=== PATIENT | female | born 1990 | race Caucasian/White ===

== ENCOUNTER 2024-07-14 15:37 | Outpatient (REF) | payer OTHER, SELFPAY ==
--- NOTE | ~2024-07-14 | XR_ITS ---
EXAMINATION: XR HAND, LEFT CLINICAL INFORMATION: M79.642 - Pain in left hand COMPARISON: None available. TECHNIQUE: PA, lateral, and oblique views of the left hand. FINDINGS: There is a comminuted fracture proximal phalanx mid segment fifth digit without displacement. No additional fractures seen. There is mild soft tissue swelling fifth digit. XR/XR hand LT min 3V IMPRESSION: Comminuted fracture proximal phalanx with segment fifth digit. Mild soft tissue swelling. Electronically signed by: Randal Samayoa MD 07/16/2024 07:45 AM MICHELLE
== END 2024-07-14 15:38 | disposition home or self-care (01) ==
LOC: HO.HMGCX 15:37
PROVIDERS: Visit Provider Nurse Practitioner Family
DX: M79.642 Pain in left hand (principal)
CPT/HCPCS: 73130

== ENCOUNTER 2024-07-14 15:37 | Outpatient (AMB) | payer OTHER, SELFPAY ==
[2024-07-14 16:03] VITALS: BP 142/90; PULSE 73; O2SAT 98; BMI 40.8
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
== END 2024-07-14 16:51 | disposition home or self-care (01) ==
PROVIDERS: Visit Provider Physician Assistant
DX: S62.647A Nondisplaced fracture of proximal phalanx of left little finger, initial encounter for closed fracture (principal)

== ENCOUNTER → 2024-07-14 16:25 | Outpatient (BNV) | payer OTHER, SELFPAY | PROVIDERS: Visit Provider Radiology Diagnostic Radiology | DX: S62.617A Displaced fracture of proximal phalanx of left little finger, initial encounter for closed fracture (principal); V49.40XA Driver injured in collision with unspecified motor vehicles in traffic accident, initial encounter; Z04.3 Encounter for examination and observation following other accident | CPT/HCPCS: 73130 ==

== ENCOUNTER 2024-08-03 09:18 | Outpatient (AMB) | payer OTHER, SELFPAY ==
[2024-08-03 09:20] VITALS: BP 120/78; PULSE 86; TEMP 36.6; O2SAT 98; BMI 40.8
--- NOTE | 2024-08-03 09:20 | AM.OFFWIN_ITS ---
Intake Vital Signs 08/03/24 09:20 Height 5 ft 2 in Weight 223 lb BMI 40.8 BP 120/78 Blood Pressure Location Lt brachial Position Sitting Pulse 86 Pulse Source Pulse Oximeter Temp 97.9 F Temp Source Oral Pulse Oximetry (%) 98 Oxygen Delivery Method Room Air Intake Visit Reasons: EP LT ear pain Intake Note: Pt is here today for a walk in visit. Pt c/o L ear pain since last night. Patient Tobacco Use Status: Never used Tobacco Allergies No Known Allergies Allergy (Verified 08/03/24 09:21) HPI HPI Comments History of Present Illness0 Details 34 y/o female patient who presents to [facility] walk in clinic with c/o left ear pain since yesterday night. Denies fevers, chills, nausea or vomiting. Den ies headaches or dizziness. She does endorse Seasonal allergies and she is allergic to her Cats. [facility] Social History Patient Tobacco Use Status: Never used Tobacco Review of Systems Const All systems reviewed & are unremarkable except as noted in HPI and below Physical Exam Vital Signs: Last Vital Signs Temp 97.9 F 08/03/24 09:20 Pulse 86 08/03/24 09:20 BP 120/78 08/03/24 09:20 Pulse Ox 98 08/03/24 09:20 Oxygen Delivery Method Room Air 08/03/24 09:20 BMI result Body Mass Index 40.8 Const General: cooperative and no acute distress Nutritional Appearance: obese Orientation/consciousness: patient oriented x3 HEENT Head: Yes normocephalic Ears: external ears normal and TM abnormal bulging and with fluid behind the TM bilateral; not erythematous, not perforated and not retracted General nose exam: Abnormal mucous membranes and turbinates present boggy and erythematous Face and sinus: Yes sinuses nontender Mouth: moist mucous membranes Throat: Yes postnasal drainage Resp Effort & Inspection: normal respiratory effort and able to speak in complete sentences Auscultation: clear to auscultation bilaterally Cardio Heart sounds: S1 normal heart sound present and S2 normal heart sound present Neuro General: patient oriented x3 Assessment & Plan Assessment & Plan (1) Acute otalgia: Code(s): H92.09 - Otalgia, unspecified ear Qualifiers: Laterality: left Qualified Code(s): H92.02 - Otalgia, left ear Plan: Acetaminophen for pain relief Zyrtec as directed Sudafed as directed Medications: New acetaminophen 1,000 mg (2 x 500 mg) PO Q6H PRN 30 caps 0RF pain H92.02 - Otalgia, left ear pseudoephedrine HCl ER (Sudafed 12 Hour) 120 mg PO Q12H 30 tabs 0RF H92.02 - Otalgia, left ear cetirizine (Zyrtec) 10 mg PO DAILY 30 tabs 0RF H92.02 - Otalgia, left ear Coding Level of Care Code Est Pt Level 3 (65270) Diagnoses Acute pain of left ear H92.02 Laterality: left Time Spent (min) 15
== END 2024-08-03 10:33 | disposition home or self-care (01) ==
PROVIDERS: Visit Provider Nurse Practitioner Family
DX: H92.02 Otalgia, left ear (principal)